=== PATIENT | female | born 1950 | race Caucasian/White ===

== ENCOUNTER 2024-03-07 21:59 | Emergency (ER) | payer MEDICARE, OTHER ==
[2024-03-07 22:18] LABS: Bilirubin Negative (Negative); Blood, Urine Moderate (Negative); Clarity Cloudy (Clear); Glucose, Urine (Dipstick) Negative (Negative); Ketone, Urine Negative (Negative); Leukocyte Large (Negative); Nitrite Negative (Negative); Protein, Urine (Dipstick) 30 mg/dL (Neg-Trace); Urobilinogen 0.2 mg/dL (Less than 2); pH, Urine 6.5 (5.0-9.0)
[2024-03-07 22:28] LABS: Bacteria/HPF 2+ HPF (None Seen); CAUTI Indications for Culture Dysuria,urgency,freq; RBC/HPF 0-3 HPF (0-3); Squamous Epithelial 0-3 HPF (0-3); WBC/HPF Greater than 50 HPF (0-3)
[2024-03-07 22:29] LABS: Urine Culture Reflex Yes Yes
[2024-03-07] MEDS ORDERED: Cephalexin 250 MG CAP ONE (22:36)
[2024-03-07] MEDS ORDERED: Phenazopyridine HCl 95 MG TAB ONE (22:37)
== END 2024-03-07 22:44 | disposition home or self-care (01) ==
LOC: BURERS 21:59
DX: N39.0 Urinary tract infection, site not specified (principal); I10 Essential (primary) hypertension
CPT/HCPCS: 81001; 87077; 87086; 87186; 99283